=== PATIENT | male | born 1980 | race Hispanic/Latino ===

== ENCOUNTER 2024-10-03 16:41 | Emergency (ER) | payer OTHER ==
[2024-10-03] MEDS ORDERED: Lorazepam 1 MG TAB ONE (17:22)
[2024-10-03 18:15] LABS: #Basophils 0.1 thou/uL (0.0-0.2); #Eosinophils 0.1 thou/uL (0.0-0.7); #Lymphocytes 1.1 thou/uL (1.20-3.40); #Monocytes 0.4 thou/uL (0.11-0.59); #Neutrophils 6.4 thou/uL (1.40-6.50); %Basophils 1.3 % (0.0-1.0); %Lymphocytes 13.6 % (21.0-51.0); %Monocytes 4.4 % (0.0-10.0); %Neutrophils 79.8 % (42.0-75.0); Hematocrit 47.1 % (42.0-52.0); Hemoglobin 15.5 g/dL (14.0-18.0); Mean Corpuscular HGB CONC 32.9 g/dL (32.0-36.0); Mean Corpuscular Hemoglobin 30.6 pg (27.0-31.0); Mean Corpuscular Volume 93.2 fl (78.0-98.0); Mean Platelet Volume 6.2 fL (7.4-10.4); Platelet Count 265 10x3/uL (130-400); Red Blood Cell (RBC) Count 5.05 mill/uL (4.70-6.10)
[2024-10-03] MEDS ORDERED: Folic Acid 5 MG/ML MDV ONE (18:16)
[2024-10-03] MEDS ORDERED: Thiamine HCl 200 MG/2 ML VIAL ONE (18:16)
[2024-10-03] MEDS ORDERED: Lorazepam 2 MG/ML VIAL ONE (18:16)
[2024-10-03] MEDS ORDERED: Sodium Chloride 0.9% 1,000 ML ONE (18:16)
[2024-10-03 18:27] LABS: ALT (SGPT) 29 U/L (8-55); AST (SGOT) 26 U/L (5-34); Albumin 4.5 g/dL (3.5-5.0); Alkaline Phosphatase 69 U/L (40-110); Anion Gap 17 mmol/L (10-20); BUN (Urea Nitrogen) 10 mg/dL (8.9-20.6); Bilirubin, Total 0.9 mg/dL (0.2-1.2); Calc. Creatinine Clearance 0 mL/min (70-130); Calcium 9.1 mg/dL (7.8-10.44); Carbon Dioxide 21 mmol/L (22-29); Chloride 105 mmol/L (98-107); Estimated GFR 95; Globulin 3.5 g/dL (2.4-3.5); Glucose 110 mg/dL (70-105); Magnesium 1.7 mg/dL (1.6-2.6); Potassium 3.6 mmol/L (3.5-5.1); Sodium 139 mmol/L (136-145)
== END 2024-10-03 19:45 | disposition home or self-care (01) ==
LOC: MADERS 16:41
DX: F10.239 Alcohol dependence with withdrawal, unspecified (principal)
CPT/HCPCS: 80053; 83735; 85025; 93005; 96361; 96374; 96375; J2060; J3411; J7030